=== PATIENT | female | born 1975 | race Caucasian/White ===

== ENCOUNTER 2017-07-29 08:14 | Inpatient (IN) | payer OTHER ==
[2017-07-29 09:10] VITALS: BMI 26.6
--- NOTE | 2017-07-29 11:20 | HP ---
CIWA Score - CIWA Score Nausea/Vomitin Muscle Tremors: 3 Anxiety: 3 Agitation: 3 Paroxysmal Sweats: 3 Orientation: 0-Oriented Tacttile Disturbances: 1-Very Mild Itch/Numbness Auditory Disturbances: 0-None Visual Disturbances: 0-None Headache: 3-Moderate CIWA-Ar Total Score: 19 Admission [facility] Chief Complaint: alcohol withdrawal sx Allergies/Adverse Reactions: Allergies Allergy/AdvReac Type Severity Reaction Status Date / Time No Known Allergies Allergy Verified 07/29/17 09:44 History of Present Illness: 42 yo f with h/o chronic alcoholism [facility] sx reports PMHx depression, anxiyt, insomnia , thirsty on paxil Reports increased heavy drinking daily over past month prompting starting paxil and coming for detox and wants rehab after. started using pills, butnot every day. no h/o seizures or dts, no SI, derpessed and anxious. Exam Limitations: No Limitations - Ebola screening Have you traveled outside of the country in the last 21 days: Yes Have you had contact with anyone from an Ebola affected area: No Have you been sick,other than usual withdrawal symptoms: No Do you have a fever: No - Review of Systems Constitutional: Chills, Diaphoresis, Night Sweats, Changes in sleep, Weakness, Weight Stable EENT: reports: No Symptoms Reported Respiratory: reports: SOB with Exertion Cardiac: reports: No Symptoms Reported GI: reports: Diarrhea, Nausea, Poor Appetite, Poor Fluid Intake, Indigestion, Abdominal cramping : reports: No Symptoms Reported Integumentary: reports: Flushing, Sweating Neuro: reports: Headache, Numbness, Paresthesia, Tingling, Tremors Endocrine: reports: Flushing, Increased Thirst Hematology: reports: No Symptoms Reported Psychiatric: reports: Judgement Intact, Mood/Affect Appropiate, Orientated x3, Anxious, Depressed Other Systems: Reviewed and Negative Patient History - Patient Medical History Hx Anemia: No Hx Asthma: No Hx Chronic Obstructive Pulmonary Disease (COPD): No Hx Cancer: No Hx Cardiac Disorders: No Hx Congestive Heart Failure: No Hx Hypertension: No Hx Hypercholesterolemia: No Hx Pacemaker: No HX Cerebrovascular Accident: No Hx Seizures: No Hx Dementia: No Hx Diabetes: No Hx Gastrointestinal Disorders: No Hx Liver Disease: No Hx Genitourinary Disorders: No Hx Sexually Transmitted Disorders: No Hx Renal Disease (ESRD): No Hx Thyroid Disease: No Hx Human Immunodeficiency Virus (HIV): No Hx Hepatitis C: No Hx Depression: Yes (started on paxil 20mg ) Hx Suicide Attempt: No Hx Bipolar Disorder: No Hx Schizophrenia: No - Patient Surgical History Past Surgical History: Yes Hx Neurologic Surgery: Yes (SX FOR DEGENERATIVE DISC DISEASE IN 2009) Hx Abdominal Surgery: Yes (UMBILICAL HERNIA REPAIR IN 2016) Anesthesia Reaction: No - PPD History Previous Implant?: Yes Documented Results: Negative w/o proof Implanted On Prior [facility] Admission?: No PPD to be Administered?: Yes - Reproductive History Last Menstrual Period: 07/02/17 Patient : No - Smoking Cessation Smoking history: Former smoker Have you smoked in the past 12 months: Yes Aproximately how many cigarettes per day: 15 If you are a former smoker, when did you quit?: 1 MONTH AGO Hx Chewing Tobacco Use: No Initiated information on smoking cessation: Yes 'Breaking Loose' booklet given: 07/29/17 - Substance & Tx. History Hx Alcohol Use: Yes Hx Substance Use: Yes Substance Use Type: Alcohol, Prescribed, Tranquilizers Hx Substance Use Treatment: Yes ([facility]') - Substances Abused Alcohol Route: Oral Frequency: Daily Amount used: FIFTH OF WHISKEY Age of first use: 16 Date of Last Use: 07/28/17 Ectasy Route: Oral Frequency: 1-3 times last 30 days Amount used: 1 PILL Age of first use: 18 Date of Last Use: 07/27/17 Family Disease History - Family Disease History Family Disease History: Respiratory: Mother Admission Physical Exam [facility] - Vital Signs Vital Signs: Vital Signs - 24 hr 07/29/17 09:06 Temperature 98.3 F Pulse Rate 101 H Respiratory 18 Rate Blood Pressure 161/99 - Physical General Appearance: Yes: Nourished, Appropriately Dressed, Disheveled, Mild Distress, Tremorous, Irritable, Sweating, Anxious HEENTM: Yes: Within Normal Limits, EOMI, Hearing grossly Normal, Normal ENT Inspection, Normocephalic, Normal Voice, LOLI, Pharynx Normal Respiratory: Yes: Within Normal Limits, Chest Non-Tender, Lungs Clear, Normal Breath Sounds, No Respiratory Distress, No Accessory Muscle Use Neck: Yes: Within Normal Limits, No masses,lesions,Nodules, Supple, Trachea in good position Breast: Yes: Breast Exam Deferred Cardiology: Yes: Within Normal Limits, Regular Rhythm, Regular Rate, S1, S2 Abdominal: Yes: Within Normal Limits, Normal Bowel Sounds, Flat, Soft, Increased Bowel Sounds Genitourinary: Yes: Within Normal Limits Back: Yes: Within Normal Limits, Normal Inspection Musculoskeletal: Yes: Within Normal Limits, full range of Motion, Gait Steady, Pelvis Stable Extremities: Yes: Normal Capillary Refill, Normal Range of Motion, Non-Tender, Tremors Neurological: Yes: hand meat salter II-XII NML intact, Fully Oriented, Alert, Motor Strength 5/5, Normal Response, Depressed Affect Integumentary: Yes: Normal Color, Dry, Warm, Diaphoresis Lymphatic: Yes: Within Normal Limits - Addiitonal Findings: withdrawal sx - Diagnostic (1) Alcohol dependence with uncomplicated withdrawal Current Visit: Yes Status: Acute (2) Depression Current Visit: Yes Status: Acute (3) Anxiety Current Visit: Yes Status: Acute (4) Insomnia Current Visit: Yes Status: Acute (5) Dehydration Current Visit: Yes Status: Acute (6) Nicotine dependence Current Visit: Yes Status: Acute Cleared for Admission [facility] - Detox or Rehab [facility] Level of Care: Medically Managed Detox Regimen/Protocol: Librium [facility] Breath Alcohol Content Breath Alcohol Content: 0 Urine Pregancy Test - Result Urine Test Results: Negative- NO Line Present Urine Drug Screen - Results Urine Drug Screen Results: AMP-Amphetamines, MDMA-Ecstasy
[2017-07-29] MEDS ORDERED: MENTHOL/PHENOL 1 EACH UD MM PRN (11:25)
[2017-07-29] MEDS ORDERED: MAGNESIUM HYDROX 2400MG/30ML ORAL SUSPENSION 30 ML CUP PO PRN (11:25)
[2017-07-29] MEDS ORDERED: LOPERAMIDE HCL 2 MG CAPSULE PO PRN (11:25)
[2017-07-29] MEDS ORDERED: guaiFENesin/D-METHORPHAN HB 10 ML UNIT-DOSE CUPS PO PRN (11:25)
[2017-07-29] MEDS ORDERED: MAG HYDROX/AL HYDROX/SIMETH 30 ML UNIT-DOSE CUP PO PRN (11:25)
[2017-07-29] MEDS ORDERED: MAGNESIUM CITRATE 300 ML BOTTLE PO PRN (11:25)
[2017-07-29] MEDS ORDERED: P-EPHED 60MG/TRIPROLIDI 2.5MG TABLET PO PRN (11:25)
[2017-07-29] MEDS ORDERED: chlordiazePOXIDE HCL 25 MG CAPSULE PO ONE (12:39)
--- NOTE | 2017-07-29 15:22 | CONSULT ---
[facility] Psychiatric Consult - Data Date of interview: 07/29/17 Admission source: [facility] Identifying data: This is 42 years old female with no psychiatric hospitalization history intoxicated with;. Alcohol, Nicotine, Extasy, Amphetamins Substance Abuse History: - Smoking Cessation. Smoking history: Former smoker. Have you smoked in the past 12 months: Yes. Aproximately how many cigarettes per day: 15. If you are a former smoker, when did you quit?: 1 MONTH AGO. Hx Chewing Tobacco Use: No. Initiated information on smoking cessation: Yes. ' Breaking Loose' booklet given: 07/29/17. - Substance & Tx. History. Hx Alcohol Use: Yes. Hx Substance Use: Yes. Substance Use Type: Alcohol, Prescribed, Tranquilizers. Hx Substance Use Treatment: Yes ([facility] - Substances Abused. Alcohol. Route: Oral. Frequency: Daily. Amount used: FIFTH OF WHISKEY. Age of first use: 16. Date of Last Use: 07/28/17. Ectasy. Route: Oral. Frequency: 1-3 times last 30 days. Amount used: 1 PILL. Age of first use: 18. Date of Last Use: 07/27/17 Medical History: Denies significant medical problem Psychiatric History: Patoemnt reports anxiety and deprerssion,. denies suicidal history, reports taking prior to admission: Paxil 20mg po qd Physical/Sexual Abuse/Trauma History: Denies Additional Comment: Paxil 20mg po qd Mental Status Exam - Mental Status Exam Alert and Oriented to: Person Cognitive Function: Fair Patient Appearance: Well Groomed Mood: Anxious Affect: Mood Congruent Patient Behavior: Cooperative Speech Pattern: Appropriate Voice Loudness: Normal Thought Process: Goal Oriented Thought Disorder: Being Controlled Hallucinations: Denies Suicidal Ideation: Denies Homicidal Ideation: Denies Insight/Judgement: Fair Sleep: Difficulty falling asleep Appetite: Weight gain Muscle strength/Tone: Mild Hypotonicity Gait/Station: Normal Additional Comments: Paxil 20mg po qd Psychiatric Findings - Problem List ([place] 1, 2,3) (1) Anxiety Current Visit: Yes Status: Acute (2) Depression Current Visit: Yes Status: Acute (3) Ecstasy abuse Current Visit: Yes Status: Acute (4) Amphetamine abuse Current Visit: Yes Status: Acute (5) Drug-induced mood disorder Current Visit: Yes Status: Acute (6) Alcohol dependence with uncomplicated withdrawal Current Visit: Yes Status: Acute (7) Nicotine dependence Current Visit: Yes Status: Acute - Initial Treatment Plan Initial Treatment Plan: Paxil 20mg po qd. Ambien 10mg po prn qhs for insomnia
[2017-07-29 15:48] LABS: HEMATOCRIT 36.4 % (32.4-45.2); HEMOGLOBIN 12.3 GM/dL (10.7-15.3); MCH 33.8 pg (25.7-33.7); MCHC 33.7 g/dl (32.0-36.0); MEAN CELL VOLUME 100.1 fl (80-96); MEAN PLT VOLUME 6.7 fl (7.5-11.1); PLATELET COUNT 368 K/MM3 (134-434); RBC 3.64 M/mm3 (3.60-5.2); RDW 13.9 % (11.6-15.6); WHITE BLOOD COUNT 6.6 K/mm3 (4.0-10.0)
[2017-07-29 16:04] LABS: CHLORIDE 100 mmol/L (98-107); SODIUM 138 mmol/L (136-145)
[2017-07-29 16:11] LABS: ALBUMIN 4.1 g/dl (3.4-5.0); ALK PHOS 41 U/L (45-117); ANION GAP 12 (8-16); BILIRUBIN,TOTAL 0.6 mg/dL (0.2-1.0); BLOOD UREA NITROGEN 6 mg/dL (7-18); CALCIUM 8.8 mg/dL (8.5-10.1); CO2 26 mmol/L (21-32); CREATININE 0.5 mg/dL (0.55-1.02); GLUCOSE,RANDOM 72 mg/dL (74-106); SGOT/AST 21 U/L (15-37); SGPT/ALT 24 U/L (12-78); TOT PROT 7.9 g/dl (6.4-8.2)
[2017-07-29] MEDS: chlordiazePOXIDE HCL 25 MG CAPSULE PO SCH ×2 (17:03→22:08)
[2017-07-29] MEDS: PARoxetine HCL 20 MG TABLET (FP) PO SCH (17:03)
[2017-07-29] MEDS: chlordiazePOXIDE HCL 25 MG CAPSULE PO PRN (19:02)
[2017-07-29] MEDS: hydrOXYzine PAMOATE 50 MG CAPSULE (FP) PO PRN (19:02)
[2017-07-29] MEDS: THIAMINE HCL 100 MG TABLET (FP) PO SCH (22:08)
[2017-07-29] MEDS: ZOLPIDEM TARTRATE 10 MG TABLET (PARK CARE ONLY) PO PRN (22:11)
[2017-07-29 23:31] LABS: URINE APPEARANCE CLEAR; URINE BILIRUBIN NEGATIVE (NEGATIVE); URINE BLOOD NEGATIVE (NEGATIVE); URINE COLOR YELLOW; URINE GLUCOSE (UA) NEGATIVE (NEGATIVE); URINE KETONE 1+ (NEGATIVE); URINE LEUK ESTERASE NEGATIVE (NEGATIVE); URINE NITRITE NEGATIVE (NEGATIVE); URINE PROTEIN NEGATIVE (NEGATIVE); URINE UROBILINOGEN NEGATIVE mg/dL (0.2-1.0)
[2017-07-30] MEDS: chlordiazePOXIDE HCL 25 MG CAPSULE PO PRN ×3 (01:36→12:40)
[2017-07-30] MEDS: hydrOXYzine PAMOATE 50 MG CAPSULE (FP) PO PRN ×4 (03:14→18:35)
[2017-07-30] MEDS: chlordiazePOXIDE HCL 25 MG CAPSULE PO SCH ×4 (05:15→22:21)
[2017-07-30] MEDS: PARoxetine HCL 20 MG TABLET (FP) PO SCH (10:24)
[2017-07-30] MEDS: PRENATAL VITAMINS W/ FOLIC ACID TABLET (FP) PO SCH (10:24)
[2017-07-30] MEDS: IBUPROFEN 400 MG TABLET (FP) PO PRN ×2 (10:27→17:14)
[2017-07-30] MEDS: CYCLOBENZAPRINE HCL 10 MG TABLET (FP) PO PRN ×2 (11:03→17:12)
--- NOTE | 2017-07-30 12:01 | PN ---
S CIWA - CIWA Score Nausea/Vomitin Muscle Tremors: 3 Anxiety: 3 Agitation: 2 Paroxysmal Sweats: 1-Minimal Palms Moist Orientation: 0-Oriented Tacttile Disturbances: 1-Very Mild Itch/Numbness Auditory Disturbances: 1-Very Mild Visual Disturbances: 0-None Headache: 2-Mild CIWA-Ar Total Score: 16 BHS Progress Note (SOAP) Subjective: ALERT,IRRITABLE,ANXIOUS,INTERRUPTED SLEEP,TREMOR Objective: 07/30/17 11:59 Vital Signs Temperature 99.1 F 07/30/17 10:28 Pulse Rate 91 H 07/30/17 10:28 Respiratory Rate 18 07/30/17 10:28 Blood Pressure 117/74 07/30/17 10:28 O2 Sat by Pulse Oximetry (%) 07/30/17 11:59 EKG NSR,NORMAL ECG 07/30/17 12:00 Laboratory Last Values WBC 6.6 K/mm3 (4.0-10.0) 07/29/17 11:30 RBC 3.64 M/mm3 (3.60-5.2) 07/29/17 11:30 Hgb 12.3 GM/dL (10.7-15.3) 07/29/17 11:30 Hct 36.4 % (32.4-45.2) 07/29/17 11:30 MCV 100.1 fl (80-96) H 07/29/17 11:30 MCH 33.8 pg (25.7-33.7) H 07/29/17 11:30 MCHC 33.7 g/dl (32.0-36.0) 07/29/17 11:30 RDW 13.9 % (11.6-15.6) 07/29/17 11:30 Plt Count 368 K/MM3 (134-434) 07/29/17 11:30 MPV 6.7 fl (7.5-11.1) L 07/29/17 11:30 Sodium 138 mmol/L (136-145) 07/29/17 11:30 Potassium 4.0 mmol/L (3.5-5.1) 07/29/17 11:30 Chloride 100 mmol/L (98-107) 07/29/17 11:30 Carbon Dioxide 26 mmol/L (21-32) 07/29/17 11:30 Anion Gap 12 (8-16) 07/29/17 11:30 BUN 6 mg/dL (7-18) L 07/29/17 11:30 Creatinine 0.5 mg/dL (0.55-1.02) L 07/29/17 11:30 Creat Clearance w eGFR > 60 (>60) 07/29/17 11:30 Random Glucose 72 mg/dL (74-106) L 07/29/17 11:30 Calcium 8.8 mg/dL (8.5-10.1) 07/29/17 11:30 Total Bilirubin 0.6 mg/dL (0.2-1.0) 07/29/17 11:30 AST 21 U/L (15-37) 07/29/17 11:30 ALT 24 U/L (12-78) 07/29/17 11:30 Alkaline Phosphatase 41 U/L (45-117) L 07/29/17 11:30 Total Protein 7.9 g/dl (6.4-8.2) 07/29/17 11:30 Albumin 4.1 g/dl (3.4-5.0) 07/29/17 11:30 Urine Color Yellow 07/29/17 21:00 Urine Appearance Clear 07/29/17 21:00 Urine pH 6.0 (5.0-8.0) 07/29/17 21:00 Ur Specific [place] 1.017 (1.001-1.035) 07/29/17 21:00 Urine Protein Negative (NEGATIVE) 07/29/17 21:00 Urine Glucose (UA) Negative (NEGATIVE) 07/29/17 21:00 Urine Ketones 1+ (NEGATIVE) H 07/29/17 21:00 Urine Blood Negative (NEGATIVE) 07/29/17 21:00 Urine Nitrite Negative (NEGATIVE) 07/29/17 21:00 Urine Bilirubin Negative (NEGATIVE) 07/29/17 21:00 Urine Urobilinogen Negative mg/dL (0.2-1.0) 07/29/17 21:00 Ur Leukocyte Esterase Negative (NEGATIVE) 07/29/17 21:00 Assessment: 07/30/17 12:00 WITHDRAWAL SYMPTOM Plan: CONTINUE DETOX
[2017-07-30] MEDS: ZOLPIDEM TARTRATE 10 MG TABLET (PARK CARE ONLY) PO PRN (22:21)
[2017-07-30] MEDS: THIAMINE HCL 100 MG TABLET (FP) PO SCH (22:21)
[2017-07-31] MEDS: hydrOXYzine PAMOATE 50 MG CAPSULE (FP) PO PRN ×4 (03:48→17:53)
[2017-07-31] MEDS: CYCLOBENZAPRINE HCL 10 MG TABLET (FP) PO PRN ×3 (03:49→20:31)
[2017-07-31] MEDS: chlordiazePOXIDE HCL 25 MG CAPSULE PO SCH ×2 (05:20→10:30)
[2017-07-31] MEDS: IBUPROFEN 400 MG TABLET (FP) PO PRN ×2 (05:22→16:39)
[2017-07-31] MEDS: chlordiazePOXIDE HCL 25 MG CAPSULE PO PRN ×3 (06:59→18:56)
[2017-07-31] MEDS: PARoxetine HCL 20 MG TABLET (FP) PO SCH (10:30)
[2017-07-31] MEDS: PRENATAL VITAMINS W/ FOLIC ACID TABLET (FP) PO SCH (10:30)
[2017-07-31] MEDS: cloNIDine HCL 0.1 MG TABLET PO SCH ×2 (10:30→22:17)
--- NOTE | 2017-07-31 11:13 | PN ---
S CIWA - CIWA Score Nausea/Vomitin Muscle Tremors: 3 Anxiety: 3 Agitation: 2 Paroxysmal Sweats: 1-Minimal Palms Moist Orientation: 0-Oriented Tacttile Disturbances: 1-Very Mild Itch/Numbness Auditory Disturbances: 1-Very Mild Visual Disturbances: 0-None Headache: 2-Mild CIWA-Ar Total Score: 16 BHS Progress Note (SOAP) Subjective: ALERT,IRRITABLE,ANXIOUS,INTERRUPTED SLEEP,TREMOR,PAIN IN THE BODY AND BACK Objective: 07/31/17 11:11 Vital Signs Temperature 97.9 F 07/31/17 10:23 Pulse Rate 87 07/31/17 10:23 Respiratory Rate 18 07/31/17 10:23 Blood Pressure 122/59 07/31/17 10:23 O2 Sat by Pulse Oximetry (%) Laboratory Last Values WBC 6.6 K/mm3 (4.0-10.0) 07/29/17 11:30 RBC 3.64 M/mm3 (3.60-5.2) 07/29/17 11:30 Hgb 12.3 GM/dL (10.7-15.3) 07/29/17 11:30 Hct 36.4 % (32.4-45.2) 07/29/17 11:30 MCV 100.1 fl (80-96) H 07/29/17 11:30 MCH 33.8 pg (25.7-33.7) H 07/29/17 11:30 MCHC 33.7 g/dl (32.0-36.0) 07/29/17 11:30 RDW 13.9 % (11.6-15.6) 07/29/17 11:30 Plt Count 368 K/MM3 (134-434) 07/29/17 11:30 MPV 6.7 fl (7.5-11.1) L 07/29/17 11:30 Sodium 138 mmol/L (136-145) 07/29/17 11:30 Potassium 4.0 mmol/L (3.5-5.1) 07/29/17 11:30 Chloride 100 mmol/L (98-107) 07/29/17 11:30 Carbon Dioxide 26 mmol/L (21-32) 07/29/17 11:30 Anion Gap 12 (8-16) 07/29/17 11:30 BUN 6 mg/dL (7-18) L 07/29/17 11:30 Creatinine 0.5 mg/dL (0.55-1.02) L 07/29/17 11:30 Creat Clearance w eGFR > 60 (>60) 07/29/17 11:30 Random Glucose 72 mg/dL (74-106) L 07/29/17 11:30 Calcium 8.8 mg/dL (8.5-10.1) 07/29/17 11:30 Total Bilirubin 0.6 mg/dL (0.2-1.0) 07/29/17 11:30 AST 21 U/L (15-37) 07/29/17 11:30 ALT 24 U/L (12-78) 07/29/17 11:30 Alkaline Phosphatase 41 U/L (45-117) L 07/29/17 11:30 Total Protein 7.9 g/dl (6.4-8.2) 07/29/17 11: Albumin 4.1 g/dl (3.4-5.0) 07/29/17:30 Urine Color Yellow 07/29/17 21:00 Urine Appearance Clear 07/29/17 21:00 Urine pH 6.0 (5.0-8.0) 07/29/17 21:00 Ur Specific [place] 1.017 (1.001-1.035) 07/29/17 21:00 Urine Protein Negative (NEGATIVE) 07/29/17 21:00 Urine Glucose (UA) Negative (NEGATIVE) 07/29/17 21:00 Urine Ketones 1+ (NEGATIVE) H 07/29/17 21:00 Urine Blood Negative (NEGATIVE) 07/29/17 21:00 Urine Nitrite Negative (NEGATIVE) 07/29/17 21:00 Urine Bilirubin Negative (NEGATIVE) 07/29/17 21:00 Urine Urobilinogen Negative mg/dL (0.2-1.0) 07/29/17 21:00 Ur Leukocyte Esterase Negative (NEGATIVE) 07/29/17 21:00 RPR Titer Nonreactive (NONREACTIVE) 07/29/17 11:30 Assessment: 07/31/17 11:12 WITHDRAWAL SYMPTOM Plan: CONTINUE DETOX
[2017-07-31] MEDS: chlordiazePOXIDE 5 MG CAPSULE PO SCH ×2 (16:38→22:17)
--- NOTE | 2017-07-31 17:12 | EKG ---
Test Reason : Blood Pressure : / mmHG Vent. Rate : 089 BPM Atrial Rate : 089 BPM P-R Int : 148 ms QRS Dur : 088 ms QT Int : 382 ms P-R-T Axes : 077 080 067 degrees QTc Int : 464 ms NORMAL SINUS RHYTHM NORMAL ECG NO PREVIOUS ECGS AVAILABLE Confirmed by CAMRYN GUDINO MD ([id number]) on 07/31/2017 5:12:34 PM Referred By: Confirmed By:CAMRYN GUDINO MD
[2017-07-31] MEDS: ZOLPIDEM TARTRATE 10 MG TABLET (PARK CARE ONLY) PO PRN (22:17)
[2017-07-31] MEDS: THIAMINE HCL 100 MG TABLET (FP) PO SCH (22:17)
[2017-08-01] MEDS: hydrOXYzine PAMOATE 50 MG CAPSULE (FP) PO PRN ×5 (03:29→22:10)
[2017-08-01] MEDS: CYCLOBENZAPRINE HCL 10 MG TABLET (FP) PO PRN ×3 (05:59→22:10)
[2017-08-01] MEDS: chlordiazePOXIDE 5 MG CAPSULE PO SCH ×2 (05:59→10:23)
[2017-08-01] MEDS: PARoxetine HCL 20 MG TABLET (FP) PO SCH (10:22)
[2017-08-01] MEDS: cloNIDine HCL 0.1 MG TABLET PO SCH ×2 (10:22→22:10)
[2017-08-01] MEDS: PRENATAL VITAMINS W/ FOLIC ACID TABLET (FP) PO SCH (10:23)
--- NOTE | 2017-08-01 13:14 | PN ---
BHS Progress Note (SOAP) Subjective: tremor sweat difficulty to fall a sleep Objective: 08/01/17 13:10 Vital Signs Temperature 97.7 F 08/01/17 10:00 Pulse Rate 89 08/01/17 10:00 Respiratory Rate 18 08/01/17 10:00 Blood Pressure 112/69 08/01/17 10:00 O2 Sat by Pulse Oximetry (%) Laboratory Last Values WBC 6.6 K/mm3 (4.0-10.0) 07/29/17 11:30 RBC 3.64 M/mm3 (3.60-5.2) 07/29/17 11:30 Hgb 12.3 GM/dL (10.7-15.3) 07/29/17 11:30 Hct 36.4 % (32.4-45.2) 07/29/17 11:30 MCV 100.1 fl (80-96) H 07/29/17 11:30 MCH 33.8 pg (25.7-33.7) H 07/29/17 11:30 MCHC 33.7 g/dl (32.0-36.0) 07/29/17 11:30 RDW 13.9 % (11.6-15.6) 07/29/17 11:30 Plt Count 368 K/MM3 (134-434) 07/29/17 11:30 MPV 6.7 fl (7.5-11.1) L 07/29/17 11:30 Sodium 138 mmol/L (136-145) 07/29/17 11:30 Potassium 4.0 mmol/L (3.5-5.1) 07/29/17 11:30 Chloride 100 mmol/L (98-107) 07/29/17 11:30 Carbon Dioxide 26 mmol/L (21-32) 07/29/17 11:30 Anion Gap 12 (8-16) 07/29/17 11:30 BUN 6 mg/dL (7-18) L 07/29/17 11:30 Creatinine 0.5 mg/dL (0.55-1.02) L 07/29/17 11:30 Creat Clearance w eGFR > 60 (>60) 07/29/17 11:30 Random Glucose 72 mg/dL (74-106) L 07/29/17 11:30 Calcium 8.8 mg/dL (8.5-10.1) 07/29/17 11:30 Total Bilirubin 0.6 mg/dL (0.2-1.0) 07/29/17 11:30 AST 21 U/L (15-37) 07/29/17 11:30 ALT 24 U/L (12-78) 07/29/17 11:30 Alkaline Phosphatase 41 U/L (45-117) L 07/29/17 11:30 Total Protein 7.9 g/dl (6.4-8.2) 07/29/17 11:30 Albumin 4.1 g/dl (3.4-5.0) 07/29/17 11:30 Urine Color Yellow 07/29/17 21:00 Urine Appearance Clear 07/29/17 21:00 Urine pH 6.0 (5.0-8.0) 07/29/17 21:00 Ur Specific [place] 1.017 (1.001-1.035) 07/29/17 21:00 Urine Protein Negative (NEGATIVE) 07/29/17 21:00 Urine Glucose (UA) Negative (NEGATIVE) 07/29/17 21:00 Urine Ketones 1+ (NEGATIVE) H 07/29/17 21:00 Urine Blood Negative (NEGATIVE) 07/29/17 21:00 Urine Nitrite Negative (NEGATIVE) 07/29/17 21:00 Urine Bilirubin Negative (NEGATIVE) 07/29/17 21:00 Urine Urobilinogen Negative mg/dL (0.2-1.0) 07/29/17 21:00 Ur Leukocyte Esterase Negative (NEGATIVE) 07/29/17 21:00 RPR Titer Nonreactive (NONREACTIVE) 07/29/17 11:30 lab noted Assessment: 08/01/17 13:11 patient determines to remain sober aftercare arrangement uncertain case discussed with onsite counselor that the patient will have aftercare arrangement by 08/03/17 Plan: continue detox emotional support and strategies for recovery
[2017-08-01] MEDS: IBUPROFEN 400 MG TABLET (FP) PO PRN (14:31)
[2017-08-01] MEDS: chlordiazePOXIDE HCL 10 MG CAPSULE PO SCH ×2 (16:48→22:10)
[2017-08-01] MEDS: ACETAMINOPHEN 325 MG TABLET (FP) PO PRN (17:16)
[2017-08-01] MEDS: THIAMINE HCL 100 MG TABLET (FP) PO SCH (22:10)
[2017-08-02] MEDS: hydrOXYzine PAMOATE 50 MG CAPSULE (FP) PO PRN ×5 (02:21→22:15)
[2017-08-02] MEDS: chlordiazePOXIDE HCL 10 MG CAPSULE PO SCH ×2 (05:19→10:31)
[2017-08-02] MEDS: CYCLOBENZAPRINE HCL 10 MG TABLET (FP) PO PRN ×3 (05:19→22:15)
--- NOTE | 2017-08-02 10:01 | PN ---
BHS Progress Note (SOAP) Subjective: ALERT,IRRITABLE,ANXIOUS,INTERRUPTED SLEEP,PAIN IN THE BODY,AGITATED,PAIN IN THE LOWER BACK Objective: 08/02/17 09:59 Vital Signs Temperature 97.5 F L 08/02/17 06:00 Pulse Rate 79 08/02/17 06:00 Respiratory Rate 18 08/02/17 06:00 Blood Pressure 102/56 08/02/17 06:00 O2 Sat by Pulse Oximetry (%) WITHDRAWAL SYMPTOM Assessment: 08/02/17 10:00 WITHDRAWAL SYMPTOM Plan: CONTINUE DETOX,DISCHARGE IN AM
[2017-08-02] MEDS: PRENATAL VITAMINS W/ FOLIC ACID TABLET (FP) PO SCH (10:30)
[2017-08-02] MEDS: PARoxetine HCL 20 MG TABLET (FP) PO SCH (10:30)
[2017-08-02] MEDS: cloNIDine HCL 0.1 MG TABLET PO SCH ×2 (10:30→22:15)
[2017-08-02] MEDS: IBUPROFEN 400 MG TABLET (FP) PO PRN ×2 (13:56→23:28)
[2017-08-02] MEDS: ACETAMINOPHEN 325 MG TABLET (FP) PO PRN (18:44)
[2017-08-02] MEDS: THIAMINE HCL 100 MG TABLET (FP) PO SCH (22:15)
[2017-08-03] MEDS: hydrOXYzine PAMOATE 50 MG CAPSULE (FP) PO PRN ×3 (03:25→11:35)
--- NOTE | 2017-08-03 10:22 | DS ---
[facility] Detox Discharge Summary Admission Date: 07/29/17 Discharge Date: 08/03/17 - History Present History: Alcohol Dependence, Sedative Dependence - Physical Exam Results Vital Signs: Vital Signs Temperature 98.4 F 08/03/17 10:14 Pulse Rate 86 08/03/17 10:14 Respiratory Rate 20 08/03/17 10:14 Blood Pressure 102/70 08/03/17 10:14 O2 Sat by Pulse Oximetry (%) - Treatment Hospital Course: Detox Protocol Followed, Detoxed Safely, Responded well, Discharged Condition Good - Medication Discharge Medications: Ambulatory Orders Paroxetine HCl [Paxil -] 20 mg PO DAILY #30 tablet 07/29/17 - Diagnosis (1) Alcohol dependence with uncomplicated withdrawal Current Visit: Yes Status: Acute (2) Amphetamine abuse Current Visit: Yes Status: Acute (3) Drug-induced mood disorder Current Visit: Yes Status: Acute (4) Ecstasy abuse Current Visit: Yes Status: Acute (5) Insomnia Current Visit: Yes Status: Acute (6) Nicotine dependence Current Visit: Yes Status: Acute - AMA Did Patient Leave Against Medical Advice: No
[2017-08-03] MEDS: PARoxetine HCL 20 MG TABLET (FP) PO SCH (10:43)
[2017-08-03] MEDS: PRENATAL VITAMINS W/ FOLIC ACID TABLET (FP) PO SCH (10:43)
[2017-08-03] MEDS: cloNIDine HCL 0.1 MG TABLET PO SCH (10:43)
[2017-08-03] MEDS: CYCLOBENZAPRINE HCL 10 MG TABLET (FP) PO PRN (14:03)
[2017-08-03 14:32] VITALS: BP 104/69; PULSE 84; TEMP 98.1
== END 2017-08-03 14:32 | disposition other institution (70) | DRG 775 ==
LOC: YASAS 08:14 → Y6N 12:01
PROVIDERS: ADMIT Internal Medicine; ATTEND Internal Medicine
PROC: HZ2ZZZZ Detoxification Services for Substance Abuse Treatment (ICD-10-PCS; principal; 2017-07-29)
DX: F10.230 Alcohol dependence with withdrawal, uncomplicated (principal); F15.10 Other stimulant abuse, uncomplicated; F16.10 Hallucinogen abuse, uncomplicated; F17.210 Nicotine dependence, cigarettes, uncomplicated; F19.24 Other psychoactive substance dependence with psychoactive substance-induced mood disorder; F32.9 Major depressive disorder, single episode, unspecified; F41.9 Anxiety disorder, unspecified; G47.00 Insomnia, unspecified
CPT/HCPCS: 36415; 80053; 81003; 85027; 86593; 93005; 93010

== ENCOUNTER 2017-08-03 14:00 | Inpatient (IN) | payer OTHER ==
[2017-08-03] MEDS ORDERED: MAGNESIUM CITRATE 300 ML BOTTLE PO PRN (16:03)
[2017-08-03] MEDS ORDERED: MENTHOL/PHENOL 1 EACH UD MM PRN (16:03)
[2017-08-03] MEDS ORDERED: LOPERAMIDE HCL 2 MG CAPSULE PO PRN (16:03)
[2017-08-03] MEDS ORDERED: NICOTINE POLACRILEX 4 MG GUM BUC PRN (16:03)
[2017-08-03] MEDS ORDERED: ACETAMINOPHEN 325 MG TABLET (FP) PO PRN (16:03)
[2017-08-03] MEDS ORDERED: MAG HYDROX/AL HYDROX/SIMETH 30 ML UNIT-DOSE CUP PO PRN (16:03)
[2017-08-03] MEDS ORDERED: MAGNESIUM HYDROX 2400MG/30ML ORAL SUSPENSION 30 ML CUP PO PRN (16:03)
[2017-08-03] MEDS ORDERED: guaiFENesin/D-METHORPHAN HB 10 ML UNIT-DOSE CUPS PO PRN (16:03)
[2017-08-03] MEDS ORDERED: P-EPHED 60MG/TRIPROLIDI 2.5MG TABLET PO PRN (16:03)
--- NOTE | 2017-08-03 16:20 | HP ---
[facility] Rehab Assess/Revision - Admission History Admitted to Rehab from: [facility] Date of Admission to Rehab: 08/03/17 - Vital signs Vital Signs: Vital Signs Period Temp Pulse Resp BP Sys/[place]ra Pulse Ox Last 24 Hr 98.7 F 84 18 111/75 - Findings Detox History & Physical reviewed: Yes Concur with findings: Yes Comments/Additional Findings: transferred from detox to rehab admission as per protocol Inpatient Rehab Admission - Initial Determination Are CD services needed?: Yes Free of communicable disease: Yes Not in need of hospitalization: Yes - Rehab Admission Criteria Previous failed treatment: Yes Poor recovery environment: Yes Comorbidities: Yes Lacks judgement: No Patient is meeting Inpatient Rehab admission criteria:: Yes
[2017-08-03] MEDS: hydrOXYzine PAMOATE 50 MG CAPSULE (FP) PO PRN ×2 (18:15→22:39)
[2017-08-03] MEDS: THIAMINE HCL 100 MG TABLET (FP) PO SCH (21:55)
[2017-08-03] MEDS: METHOCARBAMOL 500 MG TABLET PO PRN (21:55)
[2017-08-03] MEDS: cloNIDine HCL 0.1 MG TABLET PO PRN (21:55)
[2017-08-04] MEDS: hydrOXYzine PAMOATE 50 MG CAPSULE (FP) PO PRN ×5 (02:39→18:55)
[2017-08-04] MEDS: METHOCARBAMOL 500 MG TABLET PO PRN ×3 (06:35→21:49)
[2017-08-04] MEDS ORDERED: NICOTINE 21 MG/24 HOURS TOPICAL PATCH TD SCH (10:00)
[2017-08-04] MEDS: PRENATAL VITAMINS W/ FOLIC ACID TABLET (FP) PO SCH (10:08)
[2017-08-04] MEDS: cloNIDine HCL 0.1 MG TABLET PO PRN ×2 (10:14→21:49)
--- NOTE | 2017-08-04 11:02 | HP ---
Psychiatrist Admission - Data Date of interview: 08/04/17 Admission source: [address] [place] [address] Identifying data: Arabella is the first admission to [address] [place] [address] rehabilitation for this 42 yeqars old female single mother of 10 and 2 years old daughters (kids with family),resides with boyfriend,supported by Child support money. Medical History: H/O Umbilical hernia repair,Disk disease with neurosurgery, Carpal luke syndrome (needs surgery). Psychiatric History: patient reports long history of depressed mood,anxiety, sleeping difficulties.She didnt addressed her issues until recently,when she was placed on Paxil 20 mg po daily by her PCP. Physical/Sexual Abuse/Trauma History: denies Vital Signs: Vital Signs - 24 hr 08/03/17 08/03/17 08/04/17 15:06 20:35 08:09 Temperature 98.7 F 98.2 F Pulse Rate 84 92 H 79 Respiratory 18 20 Rate Blood Pressure 111/75 114/73 102/67 Allergies/Adverse Reactions: Allergies Allergy/AdvReac Type Severity Reaction Status Date / Time No Known Allergies Allergy Verified 07/29/17 09:44 Date of last physical exam: 07/29/17 Concur with the findings of this exam: Yes - Substance Abuse/Tx History Hx Alcohol Use: Yes (drinking since 16 yo,on and of,binging(hard liquors)) Hx Substance Use: Yes (MDMA(Ecstasy)since 17 yo ) Substance Use Type: Alcohol Hx Substance Use Treatment: Yes Mental Status Exam - Mental Status Exam Alert and Oriented to: Time, Place, Person Cognitive Function: Grossly Intact Patient Appearance: Well Groomed Mood: Nervous, Anxious, Apprehensive Affect: Mood Congruent, Labile Patient Behavior: Cooperative Speech Pattern: Clear Voice Loudness: Normal Thought Process: Goal Oriented Thought Disorder: Not Present Hallucinations: Denies Suicidal Ideation: Denies Homicidal Ideation: Denies Insight/Judgement: Fair Sleep: Fair Appetite: Good Muscle strength/Tone: Normal Gait/Station: Normal Psychiatric Findings - Problem List ([place] 1, 2,3) (1) Alcohol dependence Current Visit: Yes Status: Chronic (2) Nicotine dependence Current Visit: Yes Status: Chronic (3) Ecstasy abuse Current Visit: Yes Status: Chronic (4) Amphetamine abuse Current Visit: Yes Status: Chronic (5) Drug-induced mood disorder Current Visit: Yes Status: Chronic - Initial Treatment Plan Initial Treatment Plan: Paxil 20 mg po daily will be adjusted to 30 mg po daily, start Seroquel 50 mg po hs. Will monitor progress.
[2017-08-04] MEDS: PARoxetine HCL 10 MG TABLET (FP) PO SCH (12:00)
[2017-08-04] MEDS: THIAMINE HCL 100 MG TABLET (FP) PO SCH (21:49)
[2017-08-04] MEDS: QUEtiapine FUMARATE 50 MG TABLET PO SCH (21:51)
[2017-08-05] MEDS: hydrOXYzine PAMOATE 50 MG CAPSULE (FP) PO PRN ×5 (01:25→18:39)
[2017-08-05] MEDS: METHOCARBAMOL 500 MG TABLET PO PRN (06:10)
[2017-08-05] MEDS ORDERED: PT OWN MED DRAWER 7, Y5N ONE (08:58)
[2017-08-05] MEDS ORDERED: diphenhydrAMINE HCL 50 MG CAPSULE PO PRN (10:14)
[2017-08-05] MEDS: PARoxetine HCL 10 MG TABLET (FP) PO SCH (10:21)
[2017-08-05] MEDS: PRENATAL VITAMINS W/ FOLIC ACID TABLET (FP) PO SCH (10:21)
[2017-08-05] MEDS ORDERED: METHOCARBAMOL 500 MG TABLET PO SCH (12:00)
[2017-08-05] MEDS: METHOCARBAMOL 500 MG TABLET PO SCH ×2 (13:01→21:35)
[2017-08-05] MEDS: cloNIDine HCL 0.1 MG TABLET PO PRN (21:35)
[2017-08-05] MEDS: QUEtiapine FUMARATE 50 MG TABLET PO SCH (21:35)
[2017-08-05] MEDS: THIAMINE HCL 100 MG TABLET (FP) PO SCH (21:35)
[2017-08-06] MEDS: hydrOXYzine PAMOATE 50 MG CAPSULE (FP) PO PRN ×6 (02:54→23:46)
[2017-08-06] MEDS: METHOCARBAMOL 500 MG TABLET PO SCH ×3 (06:13→21:39)
[2017-08-06] MEDS ORDERED: PT OWN MED DRAWER 7, Y5N ONE (08:42)
[2017-08-06] MEDS: PRENATAL VITAMINS W/ FOLIC ACID TABLET (FP) PO SCH (10:30)
[2017-08-06] MEDS: cloNIDine HCL 0.1 MG TABLET PO PRN ×2 (10:31→19:16)
[2017-08-06] MEDS: PARoxetine HCL 10 MG TABLET (FP) PO SCH (10:44)
[2017-08-06] MEDS: THIAMINE HCL 100 MG TABLET (FP) PO SCH (21:39)
[2017-08-06] MEDS: QUEtiapine FUMARATE 50 MG TABLET PO SCH (21:39)
[2017-08-07] MEDS: hydrOXYzine PAMOATE 50 MG CAPSULE (FP) PO PRN ×4 (05:57→18:44)
[2017-08-07] MEDS: METHOCARBAMOL 500 MG TABLET PO SCH ×3 (05:57→21:31)
[2017-08-07] MEDS: cloNIDine HCL 0.1 MG TABLET PO PRN ×2 (07:09→18:44)
[2017-08-07] MEDS: PARoxetine HCL 10 MG TABLET (FP) PO SCH (10:24)
[2017-08-07] MEDS: PRENATAL VITAMINS W/ FOLIC ACID TABLET (FP) PO SCH (10:24)
[2017-08-07] MEDS: QUEtiapine FUMARATE 50 MG TABLET PO SCH (21:31)
[2017-08-07] MEDS: THIAMINE HCL 100 MG TABLET (FP) PO SCH (21:31)
[2017-08-08] MEDS: hydrOXYzine PAMOATE 50 MG CAPSULE (FP) PO PRN ×5 (04:36→22:32)
[2017-08-08] MEDS: cloNIDine HCL 0.1 MG TABLET PO PRN (06:05)
[2017-08-08] MEDS: METHOCARBAMOL 500 MG TABLET PO SCH ×3 (06:05→21:53)
[2017-08-08] MEDS: PARoxetine HCL 10 MG TABLET (FP) PO SCH (10:10)
[2017-08-08] MEDS: PRENATAL VITAMINS W/ FOLIC ACID TABLET (FP) PO SCH (10:10)
[2017-08-08] MEDS: THIAMINE HCL 100 MG TABLET (FP) PO SCH (21:53)
[2017-08-08] MEDS: QUEtiapine FUMARATE 50 MG TABLET PO SCH (21:53)
[2017-08-09] MEDS: hydrOXYzine PAMOATE 50 MG CAPSULE (FP) PO PRN ×5 (03:35→21:58)
[2017-08-09] MEDS: METHOCARBAMOL 500 MG TABLET PO SCH ×3 (06:18→21:58)
[2017-08-09] MEDS: PARoxetine HCL 10 MG TABLET (FP) PO SCH (10:27)
[2017-08-09] MEDS: PRENATAL VITAMINS W/ FOLIC ACID TABLET (FP) PO SCH (10:28)
[2017-08-09] MEDS ORDERED: QUEtiapine FUMARATE 25 MG TABLET (FP) PO STA (10:55)
[2017-08-09] MEDS: cloNIDine HCL 0.1 MG TABLET PO PRN ×2 (11:10→21:58)
[2017-08-09] MEDS: QUEtiapine FUMARATE 25 MG TABLET (FP) PO SCH ×2 (12:01→21:58)
[2017-08-09] MEDS: THIAMINE HCL 100 MG TABLET (FP) PO SCH (21:58)
[2017-08-10] MEDS: hydrOXYzine PAMOATE 50 MG CAPSULE (FP) PO PRN ×5 (03:34→21:34)
[2017-08-10] MEDS: METHOCARBAMOL 500 MG TABLET PO SCH ×3 (06:21→21:34)
[2017-08-10] MEDS: QUEtiapine FUMARATE 25 MG TABLET (FP) PO SCH ×3 (06:21→21:35)
[2017-08-10] MEDS ORDERED: QUEtiapine FUMARATE 25 MG TABLET (FP) PO SCH (10:00)
[2017-08-10] MEDS: PARoxetine HCL 10 MG TABLET (FP) PO SCH (10:36)
[2017-08-10] MEDS: PRENATAL VITAMINS W/ FOLIC ACID TABLET (FP) PO SCH (10:36)
[2017-08-10] MEDS: cloNIDine HCL 0.1 MG TABLET PO PRN (10:37)
[2017-08-10] MEDS ORDERED: PT OWN MED DRAWER 7, Y5N ONE (14:51)
[2017-08-10] MEDS: THIAMINE HCL 100 MG TABLET (FP) PO SCH (21:34)
[2017-08-11] MEDS: hydrOXYzine PAMOATE 50 MG CAPSULE (FP) PO PRN ×5 (03:30→23:06)
[2017-08-11] MEDS: QUEtiapine FUMARATE 25 MG TABLET (FP) PO SCH ×3 (06:32→22:00)
[2017-08-11] MEDS: METHOCARBAMOL 500 MG TABLET PO SCH ×3 (06:32→22:00)
[2017-08-11] MEDS: cloNIDine HCL 0.1 MG TABLET PO PRN (06:32)
[2017-08-11] MEDS: PRENATAL VITAMINS W/ FOLIC ACID TABLET (FP) PO SCH (10:40)
[2017-08-11] MEDS: PARoxetine HCL 10 MG TABLET (FP) PO SCH (10:41)
[2017-08-11] MEDS: THIAMINE HCL 100 MG TABLET (FP) PO SCH (22:00)
[2017-08-12] MEDS: METHOCARBAMOL 500 MG TABLET PO SCH ×3 (06:28→21:49)
[2017-08-12] MEDS: QUEtiapine FUMARATE 25 MG TABLET (FP) PO SCH ×3 (06:28→21:49)
[2017-08-12] MEDS: hydrOXYzine PAMOATE 50 MG CAPSULE (FP) PO PRN ×4 (06:28→21:49)
[2017-08-12] MEDS: cloNIDine HCL 0.1 MG TABLET PO PRN ×2 (08:54→21:49)
[2017-08-12] MEDS: PARoxetine HCL 10 MG TABLET (FP) PO SCH (10:40)
[2017-08-12] MEDS: PRENATAL VITAMINS W/ FOLIC ACID TABLET (FP) PO SCH (10:40)
[2017-08-12] MEDS ORDERED: PT OWN MED DRAWER 7, Y5N ONE (14:41)
[2017-08-12] MEDS: CLOTRIMAZOLE 1% CREAM 15 GM TUBE TP SCH ×2 (15:17→21:50)
[2017-08-12] MEDS: THIAMINE HCL 100 MG TABLET (FP) PO SCH (21:49)
[2017-08-13] MEDS: hydrOXYzine PAMOATE 50 MG CAPSULE (FP) PO PRN ×5 (03:20→21:08)
[2017-08-13] MEDS: QUEtiapine FUMARATE 25 MG TABLET (FP) PO SCH ×3 (06:15→21:09)
[2017-08-13] MEDS: METHOCARBAMOL 500 MG TABLET PO SCH ×3 (06:15→21:09)
[2017-08-13] MEDS ORDERED: PT OWN MED DRAWER 7, Y5N ONE ×2 (09:10→10:51)
[2017-08-13] MEDS: CLOTRIMAZOLE 1% CREAM 15 GM TUBE TP SCH ×2 (10:43→21:10)
[2017-08-13] MEDS: PRENATAL VITAMINS W/ FOLIC ACID TABLET (FP) PO SCH (10:43)
[2017-08-13] MEDS: PARoxetine HCL 10 MG TABLET (FP) PO SCH (10:43)
[2017-08-13] MEDS: cloNIDine HCL 0.1 MG TABLET PO PRN ×2 (10:45→21:09)
[2017-08-13] MEDS: COLLOIDAL OATMEAL 1 BAR EACH TP PRN (15:48)
[2017-08-13] MEDS: THIAMINE HCL 100 MG TABLET (FP) PO SCH (21:08)
[2017-08-14] MEDS: hydrOXYzine PAMOATE 50 MG CAPSULE (FP) PO PRN ×5 (02:55→19:59)
[2017-08-14] MEDS: METHOCARBAMOL 500 MG TABLET PO SCH ×3 (06:37→21:05)
[2017-08-14] MEDS: QUEtiapine FUMARATE 25 MG TABLET (FP) PO SCH ×3 (06:38→21:05)
[2017-08-14] MEDS ORDERED: PT OWN MED DRAWER 7, Y5N ONE ×5 (08:33→19:54)
[2017-08-14] MEDS: cloNIDine HCL 0.1 MG TABLET PO PRN ×2 (08:55→21:04)
[2017-08-14] MEDS: PRENATAL VITAMINS W/ FOLIC ACID TABLET (FP) PO SCH (09:00)
[2017-08-14] MEDS: PARoxetine HCL 10 MG TABLET (FP) PO SCH (09:00)
[2017-08-14] MEDS: CLOTRIMAZOLE 1% CREAM 15 GM TUBE TP SCH ×2 (10:25→21:05)
[2017-08-14] MEDS: THIAMINE HCL 100 MG TABLET (FP) PO SCH (21:04)
[2017-08-15] MEDS: hydrOXYzine PAMOATE 50 MG CAPSULE (FP) PO PRN ×5 (03:44→20:01)
[2017-08-15] MEDS: QUEtiapine FUMARATE 25 MG TABLET (FP) PO SCH ×3 (06:35→21:46)
[2017-08-15] MEDS: METHOCARBAMOL 500 MG TABLET PO SCH ×3 (06:36→21:46)
[2017-08-15] MEDS: PARoxetine HCL 10 MG TABLET (FP) PO SCH (09:26)
[2017-08-15] MEDS: cloNIDine HCL 0.1 MG TABLET PO PRN ×2 (09:26→21:47)
[2017-08-15] MEDS: PRENATAL VITAMINS W/ FOLIC ACID TABLET (FP) PO SCH (09:26)
[2017-08-15] MEDS: CLOTRIMAZOLE 1% CREAM 15 GM TUBE TP SCH ×2 (09:26→21:45)
[2017-08-15] MEDS ORDERED: PT OWN MED DRAWER 7, Y5N ONE ×3 (10:31→21:49)
[2017-08-15] MEDS: IBUPROFEN 400 MG TABLET (FP) PO PRN (14:15)
[2017-08-15] MEDS: THIAMINE HCL 100 MG TABLET (FP) PO SCH (21:47)
[2017-08-16] MEDS: hydrOXYzine PAMOATE 50 MG CAPSULE (FP) PO PRN ×4 (03:36→22:03)
[2017-08-16] MEDS: METHOCARBAMOL 500 MG TABLET PO SCH ×3 (06:37→22:04)
[2017-08-16] MEDS: QUEtiapine FUMARATE 25 MG TABLET (FP) PO SCH ×4 (06:37→14:15)
[2017-08-16] MEDS ORDERED: PT OWN MED DRAWER 7, Y5N ONE (09:14)
--- NOTE | 2017-08-16 10:08 | PN ---
Psychiatric Progress Note Vital Signs: Vital Signs Period Temp Pulse Resp BP Sys/Piedra Pulse Ox Last 24 Hr 98.3 F 79-93 -18 110-114/72-73 Date of Session: 08/16/17 Chief Complaint:: Bonifacio nervious,I had a bad news. HPI: Alcohol dependence ,Ecstasy abuse,Amphetamine abuse comorbid with substance induced mood disorder. ROS: unremarkable Current Medications: Active Medications Generic Name Dose Route Start Last Admin Trade Name Freq PRN Reason Stop Dose Admin Acetaminophen 650 mg 08/03/17 16:03 Tylenol - PO Q4H PRN FEVER Al Hydroxide/Mg Hydroxide 30 ml 08/03/17 16:03 Mylanta Oral Suspension - PO Q6H PRN DYSPEPSIA Clonidine 0.1 mg 08/03/17 19:34 08/15/17 21:47 Catapres - PO 0.1 mg BID PRN Administration WITHDRAWAL(CONT SUBST) Clotrimazole 1 applic 08/12/17 13:30 08/15/17 21:45 Lotrimin 1% Cream - TP 1 applic BID RANDOLPH Administration Colloidal Oatmeal 1 applic 08/13/17 15:39 08/13/17 15:48 Aveeno Soap - TP 1 applic DAILY PRN Administration HYGEINE Diphenhydramine HCl 50 mg 08/05/17 10:14 Benadryl - PO HS PRN INSOMNIA Eucalyptus/Menthol/Phenol/Sorbitol 1 each 08/03/17 16:03 Cepastat Lozenge - MM Q4H PRN SORE THROAT Guaifenesin 10 ml 08/03/17 16:03 Robitussin Dm - PO Q6H PRN COUGH Hydroxyzine Pamoate 50 mg 08/03/17 16:03 08/16/17 07:38 Vistaril - PO 50 mg Q4H PRN Administration AGITATION Ibuprofen 400 mg 08/03/17 16:03 08/15/17 14:15 Motrin - PO 400 mg Q6H PRN Administration Pain Level 4-6 Loperamide HCl 4 mg 08/03/17 16:03 Imodium - PO Q6H PRN DIARRHEA Magnesium Citrate 300 ml 08/03/17 16:03 Citroma - PO Q48H PRN CONSTIPATION Magnesium Hydroxide 30 ml 08/03/17 16:03 Milk Of Magnesia - PO DAILY PRN CONSTIPATION Methocarbamol 500 mg 08/05/17 14:00 08/16/17 06:37 Robaxin - PO 500 mg TID RANDOLPH Administration Nicotine Polacrilex 4 mg 08/03/17 16:03 Nicorette Gum - BUC Q2H PRN NICOTINE REPLACEMENT RX Paroxetine HCl 30 mg 08/04/17 11:30 08/15/17 09:26 Paxil - PO 30 mg DAILY RANDOLPH Administration Multivit/Folic Acid/Iron 1 tab 08/04/17 10:00 08/15/17 09:26 Vitamins (Sjr) - PO 1 tab DAILY RANDOLPH Administration Pseudoephedrine/Triprolidine 1 combo 08/03/17 16:03 Actifed - PO TID PRN NASAL CONGESTION Quetiapine Fumarate 100 mg 08/16/17 22:00 Seroquel - PO HS RANDOLPH Quetiapine Fumarate 25 mg 08/16/17 10:00 Seroquel - PO TID@1000,1200,1400 RANDOLPH Thiamine HCl 100 mg 08/03/17 22:00 08/15/17 21:47 Vitamin B1 - PO 100 mg HS RANDOLPH Administration Current Side Effect: No Lab tests ordered: No Lab tests reviewed: Yes Provider note:: Chart was revuewed,patient was evaluatedShe addressed severe anxiety,sleeping difficulties started since this weekend when she found out bad news that her doesnt her back home.According to her her he was irina, unreasonable ans nasty when taling to her.Patient got very upset,nervious,not able to fall asleep and stay in sleep.properties of Seroquel has been discussed with the patient including side effects,benefits and dose adjustment. Seroquel 25 mg p tid will be adjusted to 25 mg po tid and Seroquel 75 mg po hs will be adjusted to 100 mg po hs. Supportive therapy provided. Total face to face time:: 35 Mental Status Exam - Mental Status Exam Alert and Oriented to: Time, Place, Person Cognitive Function: Grossly Intact Patient Appearance: Well Groomed Mood: Nervous, Anxious Affect: Mood Congruent, Labile Patient Behavior: Talkative, Cooperative Speech Pattern: Clear Voice Loudness: Normal Thought Process: Goal Oriented Thought Disorder: Not Present Hallucinations: Denies Suicidal Ideation: Denies Homicidal Ideation: Denies Insight/Judgement: Fair Sleep: Difficulty falling asleep Appetite: Fair Muscle strength/Tone: Normal Gait/Station: Normal Psychiatric Treatment Plan - Problem List (1) Alcohol dependence Current Visit: Yes (2) Nicotine dependence Current Visit: Yes (3) Ecstasy abuse Current Visit: Yes (4) Amphetamine abuse Current Visit: Yes (5) Drug-induced mood disorder Current Visit: Yes
[2017-08-16] MEDS: PRENATAL VITAMINS W/ FOLIC ACID TABLET (FP) PO SCH (10:44)
[2017-08-16] MEDS: PARoxetine HCL 10 MG TABLET (FP) PO SCH (10:45)
[2017-08-16] MEDS: CLOTRIMAZOLE 1% CREAM 15 GM TUBE TP SCH ×2 (10:45→22:04)
[2017-08-16] MEDS: THIAMINE HCL 100 MG TABLET (FP) PO SCH (22:02)
[2017-08-16] MEDS: QUEtiapine FUMARATE 100 MG TABLET (FP) PO SCH (22:03)
[2017-08-16] MEDS: cloNIDine HCL 0.1 MG TABLET PO PRN (22:03)
[2017-08-17] MEDS: METHOCARBAMOL 500 MG TABLET PO SCH ×3 (06:28→21:55)
[2017-08-17] MEDS: hydrOXYzine PAMOATE 50 MG CAPSULE (FP) PO PRN ×4 (06:28→21:55)
[2017-08-17] MEDS: QUEtiapine FUMARATE 25 MG TABLET (FP) PO SCH ×3 (10:45→15:10)
[2017-08-17] MEDS: PRENATAL VITAMINS W/ FOLIC ACID TABLET (FP) PO SCH (10:45)
[2017-08-17] MEDS: cloNIDine HCL 0.1 MG TABLET PO PRN ×2 (10:46→21:55)
[2017-08-17] MEDS: CLOTRIMAZOLE 1% CREAM 15 GM TUBE TP SCH ×2 (10:46→21:55)
[2017-08-17] MEDS: PARoxetine HCL 10 MG TABLET (FP) PO SCH (10:46)
[2017-08-17] MEDS: THIAMINE HCL 100 MG TABLET (FP) PO SCH (21:54)
[2017-08-17] MEDS: QUEtiapine FUMARATE 100 MG TABLET (FP) PO SCH (21:55)
[2017-08-18] MEDS: hydrOXYzine PAMOATE 50 MG CAPSULE (FP) PO PRN ×3 (06:23→19:17)
[2017-08-18] MEDS: METHOCARBAMOL 500 MG TABLET PO SCH ×3 (06:23→21:45)
--- NOTE | 2017-08-18 09:09 | PN ---
Psychiatric Progress Note Vital Signs: Vital Signs Period Temp Pulse Resp BP Sys/Piedra Pulse Ox Last 24 Hr 98.0 F 79-85 18-18 108-122/72-76 Date of Session: 08/18/17 Current Medications: Active Medications Generic Name Dose Route Start Last Admin Trade Name Freq PRN Reason Stop Dose Admin Acetaminophen 650 mg 08/03/17 16:03 Tylenol - PO Q4H PRN FEVER Al Hydroxide/Mg Hydroxide 30 ml 08/03/17 16:03 Mylanta Oral Suspension - PO Q6H PRN DYSPEPSIA Clonidine 0.1 mg 08/03/17 19:34 08/17/17 21:55 Catapres - PO 0.1 mg BID PRN Administration WITHDRAWAL(CONT SUBST) Clotrimazole 1 applic 08/12/17 13:30 08/17/17 21:55 Lotrimin 1% Cream - TP 1 applic BID RANDOLPH Administration Colloidal Oatmeal 1 applic 08/13/17 15:39 08/13/17 15:48 Aveeno Soap - TP 1 applic DAILY PRN Administration HYGEINE Diphenhydramine HCl 50 mg 08/05/17 10:14 Benadryl - PO HS PRN INSOMNIA Eucalyptus/Menthol/Phenol/Sorbitol 1 each 08/03/17 16:03 Cepastat Lozenge - MM Q4H PRN SORE THROAT Guaifenesin 10 ml 08/03/17 16:03 Robitussin Dm - PO Q6H PRN COUGH Hydroxyzine Pamoate 50 mg 08/03/17 16:03 08/18/17 06:23 Vistaril - PO 50 mg Q4H PRN Administration AGITATION Ibuprofen 400 mg 08/03/17 16:03 08/15/17 14:15 Motrin - PO 400 mg Q6H PRN Administration Pain Level 4-6 Loperamide HCl 4 mg 08/03/17 16:03 Imodium - PO Q6H PRN DIARRHEA Magnesium Citrate 300 ml 08/03/17 16:03 Citroma - PO Q48H PRN CONSTIPATION Magnesium Hydroxide 30 ml 08/03/17 16:03 Milk Of Magnesia - PO DAILY PRN CONSTIPATION Methocarbamol 500 mg 08/05/17 14:00 08/18/17 06:23 Robaxin - PO 500 mg TID RANDOLPH Administration Nicotine Polacrilex 4 mg 08/03/17 16:03 Nicorette Gum - BUC Q2H PRN NICOTINE REPLACEMENT RX Paroxetine HCl 30 mg 08/04/17 11:30 08/17/17 10:46 Paxil - PO 30 mg DAILY RANDOLPH Administration Multivit/Folic Acid/Iron 1 tab 08/04/17 10:00 08/17/17 10:45 Vitamins (Sjr) - PO 1 tab DAILY RANDOLPH Administration Pseudoephedrine/Triprolidine 1 combo 08/03/17 16:03 Actifed - PO TID PRN NASAL CONGESTION Quetiapine Fumarate 100 mg 08/16/17 22:00 08/17/17 21:55 Seroquel - PO 100 mg HS RANDOLPH Administration Quetiapine Fumarate 25 mg 08/16/17 10:00 08/17/17 15:10 Seroquel - PO 25 mg TID@1000,1200,1400 RANDOLPH Administration Thiamine HCl 100 mg 08/03/17 22:00 08/17/17 21:54 Vitamin B1 - PO 100 mg HS RANDOLPH Administration Current Side Effect: No Lab tests ordered: No Lab tests reviewed: Yes Psychiatric Treatment Plan - Problem List (1) Alcohol dependence Current Visit: Yes (2) Nicotine dependence Current Visit: Yes (3) Ecstasy abuse Current Visit: Yes (4) Amphetamine abuse Current Visit: Yes (5) Drug-induced mood disorder Current Visit: Yes
[2017-08-18] MEDS: PRENATAL VITAMINS W/ FOLIC ACID TABLET (FP) PO SCH (09:28)
[2017-08-18] MEDS: CLOTRIMAZOLE 1% CREAM 15 GM TUBE TP SCH ×2 (09:28→21:46)
[2017-08-18] MEDS: PARoxetine HCL 10 MG TABLET (FP) PO SCH (09:28)
[2017-08-18] MEDS: QUEtiapine FUMARATE 25 MG TABLET (FP) PO SCH ×3 (09:29→14:02)
[2017-08-18] MEDS: cloNIDine HCL 0.1 MG TABLET PO PRN ×2 (09:30→21:45)
[2017-08-18] MEDS ORDERED: PT OWN MED DRAWER 7, Y5N ONE (10:43)
[2017-08-18] MEDS: QUEtiapine FUMARATE 100 MG TABLET (FP) PO SCH (21:45)
[2017-08-18] MEDS: THIAMINE HCL 100 MG TABLET (FP) PO SCH (21:45)
[2017-08-19] MEDS: QUEtiapine FUMARATE 25 MG TABLET (FP) PO SCH (06:35)
[2017-08-19] MEDS: METHOCARBAMOL 500 MG TABLET PO SCH ×3 (06:35→21:39)
[2017-08-19] MEDS: hydrOXYzine PAMOATE 50 MG CAPSULE (FP) PO PRN ×4 (08:13→21:39)
[2017-08-19] MEDS: PRENATAL VITAMINS W/ FOLIC ACID TABLET (FP) PO SCH (10:34)
[2017-08-19] MEDS: CLOTRIMAZOLE 1% CREAM 15 GM TUBE TP SCH ×2 (10:34→21:40)
[2017-08-19] MEDS: PARoxetine HCL 10 MG TABLET (FP) PO SCH (10:34)
[2017-08-19] MEDS: cloNIDine HCL 0.1 MG TABLET PO PRN (17:06)
[2017-08-19] MEDS: THIAMINE HCL 100 MG TABLET (FP) PO SCH (21:39)
[2017-08-19] MEDS: QUEtiapine FUMARATE 100 MG TABLET (FP) PO SCH (21:39)
[2017-08-20] MEDS: cloNIDine HCL 0.1 MG TABLET PO PRN ×2 (06:18→18:02)
[2017-08-20] MEDS: METHOCARBAMOL 500 MG TABLET PO SCH ×3 (06:18→21:50)
[2017-08-20] MEDS: QUEtiapine FUMARATE 25 MG TABLET (FP) PO SCH (06:19)
[2017-08-20] MEDS: hydrOXYzine PAMOATE 50 MG CAPSULE (FP) PO PRN ×4 (08:31→21:51)
[2017-08-20] MEDS ORDERED: PT OWN MED DRAWER 7, Y5N ONE ×4 (08:36→19:47)
[2017-08-20] MEDS: PRENATAL VITAMINS W/ FOLIC ACID TABLET (FP) PO SCH (10:37)
[2017-08-20] MEDS: CLOTRIMAZOLE 1% CREAM 15 GM TUBE TP SCH ×2 (10:37→21:52)
[2017-08-20] MEDS: PARoxetine HCL 10 MG TABLET (FP) PO SCH (10:37)
--- NOTE | 2017-08-20 17:27 | PN ---
[facility] Progress Note (SOAP) Subjective: difficulty moving bowels and straining, anxious and tremors Objective: 08/20/17 17:22 Vital Signs Temperature 98.2 F 08/20/17 07:26 Pulse Rate 83 08/20/17 07:26 Respiratory Rate 17 18 07:26 Blood Pressure 120/80 08/20/17 07:26 O2 Sat by Pulse Oximetry (%) GENERAL APPEARANCE: Well developed, well nourished, alert and cooperative, and appears to be in no acute distress, anxious. CARDIAC: Normal S1 and S2. No S3, S4 or murmurs. Rhythm is regular. There is no peripheral edema, cyanosis or pallor. Extremities are warm and well perfused. Capillary refill is less than 2 seconds. No carotid bruits. LUNGS: Clear to auscultation and percussion without rales, rhonchi, wheezing or diminished breath sounds. ABDOMEN: Positive bowel sounds. Soft, nondistended, nontender. No guarding or rebound. No masses. NEUROLOGICAL: CN II-XII intact. Strength and sensation symmetric and intact throughout. SKIN: Skin normal color, texture and turgor with no lesions or eruptions. PSYCHIATRIC: Ao x 3, anxious and shaky 08/20/17 17:26 Assessment: 08/20/17 17:23 anxious ( consulted with Dr Ziegler regarding patients symptoms, start neurontin TID and continue to monitor, patient should follow up with psych for medication adjustment for anxiety) constipation 08/20/17 17:25 Plan: Increase fluids Neurotin 100mg TID Colace 300mg QHS Follow up with psych for medication adjustment continue to monitor / follow up as needed
[2017-08-20] MEDS: DOCUSATE SODIUM 100 MG CAPSULE (FP) PO SCH (21:50)
[2017-08-20] MEDS: QUEtiapine FUMARATE 100 MG TABLET (FP) PO SCH (21:50)
[2017-08-20] MEDS: GABAPENTIN 100 MG CAPSULE (FP) PO SCH (21:50)
[2017-08-20] MEDS: THIAMINE HCL 100 MG TABLET (FP) PO SCH (21:50)
[2017-08-21] MEDS: METHOCARBAMOL 500 MG TABLET PO SCH ×3 (06:11→21:42)
[2017-08-21] MEDS: GABAPENTIN 100 MG CAPSULE (FP) PO SCH ×3 (06:12→21:42)
[2017-08-21] MEDS: QUEtiapine FUMARATE 25 MG TABLET (FP) PO SCH (06:12)
[2017-08-21] MEDS: cloNIDine HCL 0.1 MG TABLET PO PRN ×2 (06:13→18:55)
[2017-08-21] MEDS ORDERED: COLLOIDAL OATMEAL 1 BAR EACH TP PRN (08:00)
[2017-08-21] MEDS: PRENATAL VITAMINS W/ FOLIC ACID TABLET (FP) PO SCH (10:32)
[2017-08-21] MEDS: PARoxetine HCL 10 MG TABLET (FP) PO SCH (10:32)
[2017-08-21] MEDS: hydrOXYzine PAMOATE 50 MG CAPSULE (FP) PO PRN ×3 (10:32→18:54)
[2017-08-21] MEDS: CLOTRIMAZOLE 1% CREAM 15 GM TUBE TP SCH ×2 (10:33→21:57)
[2017-08-21] MEDS: COLLOIDAL OATMEAL 1 BAR EACH TP PRN (10:41)
[2017-08-21] MEDS ORDERED: PT OWN MED DRAWER 7, Y5N ONE (10:43)
[2017-08-21] MEDS: QUEtiapine FUMARATE 100 MG TABLET (FP) PO SCH (21:42)
[2017-08-21] MEDS: DOCUSATE SODIUM 100 MG CAPSULE (FP) PO SCH (21:42)
[2017-08-21] MEDS: THIAMINE HCL 100 MG TABLET (FP) PO SCH (21:42)
[2017-08-22] MEDS: hydrOXYzine PAMOATE 50 MG CAPSULE (FP) PO PRN ×4 (06:23→19:09)
[2017-08-22] MEDS: QUEtiapine FUMARATE 25 MG TABLET (FP) PO SCH (06:23)
[2017-08-22] MEDS: METHOCARBAMOL 500 MG TABLET PO SCH ×3 (06:23→21:56)
[2017-08-22] MEDS: GABAPENTIN 100 MG CAPSULE (FP) PO SCH ×3 (06:23→21:56)
[2017-08-22] MEDS: cloNIDine HCL 0.1 MG TABLET PO PRN ×2 (06:23→18:03)
[2017-08-22] MEDS: PARoxetine HCL 10 MG TABLET (FP) PO SCH (10:43)
[2017-08-22] MEDS: PRENATAL VITAMINS W/ FOLIC ACID TABLET (FP) PO SCH (10:43)
[2017-08-22] MEDS: CLOTRIMAZOLE 1% CREAM 15 GM TUBE TP SCH ×2 (10:44→21:57)
[2017-08-22] MEDS: DOCUSATE SODIUM 100 MG CAPSULE (FP) PO SCH (21:55)
[2017-08-22] MEDS: THIAMINE HCL 100 MG TABLET (FP) PO SCH (21:55)
[2017-08-22] MEDS: QUEtiapine FUMARATE 100 MG TABLET (FP) PO SCH (21:56)
[2017-08-23] MEDS: METHOCARBAMOL 500 MG TABLET PO SCH ×3 (06:18→21:45)
[2017-08-23] MEDS: GABAPENTIN 100 MG CAPSULE (FP) PO SCH ×3 (06:18→21:45)
[2017-08-23] MEDS: QUEtiapine FUMARATE 25 MG TABLET (FP) PO SCH (06:19)
[2017-08-23] MEDS: PARoxetine HCL 10 MG TABLET (FP) PO SCH (10:28)
[2017-08-23] MEDS: PRENATAL VITAMINS W/ FOLIC ACID TABLET (FP) PO SCH (10:28)
[2017-08-23] MEDS: CLOTRIMAZOLE 1% CREAM 15 GM TUBE TP SCH ×2 (10:29→21:46)
[2017-08-23] MEDS: cloNIDine HCL 0.1 MG TABLET PO PRN (10:30)
[2017-08-23] MEDS: hydrOXYzine PAMOATE 50 MG CAPSULE (FP) PO PRN ×2 (14:16→18:28)
--- NOTE | 2017-08-23 17:15 | PN ---
Psychiatric Progress Note Vital Signs: Vital Signs Period Temp Pulse Resp BP Sys/Piedra Pulse Ox Last 24 Hr 98.2 F 80-83 18-18 110-127/71-77 Date of Session: 08/23/17 Chief Complaint:: Bonifacio still depressed,anxious." HPI: Patient addressed Alcohol dependence,Amphetamine and Ecstasy abuse comorbid with Substance induced mood disorder. ROS: unremarkable Current Medications: Active Medications Generic Name Dose Route Start Last Admin Trade Name Freq PRN Reason Stop Dose Admin Acetaminophen 650 mg 08/03/17 16:03 Tylenol - PO Q4H PRN FEVER Al Hydroxide/Mg Hydroxide 30 ml 08/03/17 16:03 Mylanta Oral Suspension - PO Q6H PRN DYSPEPSIA Clonidine 0.1 mg 08/03/17 19:34 08/23/17 10:30 Catapres - PO 0.1 mg BID PRN Administration WITHDRAWAL(CONT SUBST) Clotrimazole 1 applic 08/12/17 13:30 08/23/17 10:29 Lotrimin 1% Cream - TP 1 applic BID RANDOLPH Administration Colloidal Oatmeal 1 applic 08/13/17 15:39 08/21/17 10:41 Aveeno Soap - TP 1 applic DAILY PRN Administration HYGEINE Diphenhydramine HCl 50 mg 08/05/17 10:14 Benadryl - PO HS PRN INSOMNIA Docusate Sodium 300 mg 08/20/17 22:00 08/22/17 21:55 Colace - PO 300 mg HS RANDOLPH Administration Eucalyptus/Menthol/Phenol/Sorbitol 1 each 08/03/17 16:03 Cepastat Lozenge - MM Q4H PRN SORE THROAT Gabapentin 100 mg 08/20/17 22:00 08/23/17 13:01 Neurontin - PO 100 mg TID RANDOLPH Administration Guaifenesin 10 ml 08/03/17 16:03 Robitussin Dm - PO Q6H PRN COUGH Hydroxyzine Pamoate 50 mg 08/03/17 16:03 08/23/17 14:16 Vistaril - PO 50 mg Q4H PRN Administration AGITATION Ibuprofen 400 mg 08/03/17 16:03 08/15/17 14:15 Motrin - PO 400 mg Q6H PRN Administration Pain Level 4-6 Loperamide HCl 4 mg 08/03/17 16:03 Imodium - PO Q6H PRN DIARRHEA Magnesium Citrate 300 ml 08/03/17 16:03 Citroma - PO Q48H PRN CONSTIPATION Magnesium Hydroxide 30 ml 08/03/17 16:03 Milk Of Magnesia - PO DAILY PRN CONSTIPATION Methocarbamol 500 mg 08/05/17 14:00 08/23/17 13:01 Robaxin - PO 500 mg TID RANDOLPH Administration Nicotine Polacrilex 4 mg 08/03/17 16:03 Nicorette Gum - BUC Q2H PRN NICOTINE REPLACEMENT RX Paroxetine HCl 40 mg 08/24/17 10:00 Paxil - PO DAILY RANDOLPH Multivit/Folic Acid/Iron 1 tab 08/04/17 10:00 08/23/17 10:28 Vitamins (Sjr) - PO 1 tab DAILY RANDOLPH Administration Pseudoephedrine/Triprolidine 1 combo 08/03/17 16:03 Actifed - PO TID PRN NASAL CONGESTION Quetiapine Fumarate 100 mg 08/16/17 22:00 08/22/17 21:56 Seroquel - PO 100 mg HS RANDOLPH Administration Quetiapine Fumarate 75 mg 08/19/17 07:00 08/23/17 06:19 Seroquel - PO 75 mg AM RANDOLPH Administration Thiamine HCl 100 mg 08/03/17 22:00 08/22/17 21:55 Vitamin B1 - PO 100 mg HS RANDOLPH Administration Current Side Effect: No Lab tests ordered: No Lab tests reviewed: Yes Provider note:: Chart was revuewed,met with the patient.She addressed depression,anxiety,mood instability.Properties of Paxil has been discussed with patient including side effects,benefits and dose adjustment.Paxil 30 mg po daily will be adjusted to 40 mg po daily. Patient will continue current medications as per plan. Supportive therapy provided. Total face to face time:: 30 Mental Status Exam - Mental Status Exam Alert and Oriented to: Time, Place, Person Cognitive Function: Grossly Intact Patient Appearance: Well Groomed Mood: Anxious, Expansive Affect: Labile Patient Behavior: Cooperative Speech Pattern: Clear Voice Loudness: Normal Thought Process: Goal Oriented Thought Disorder: Not Present Hallucinations: Denies Suicidal Ideation: Denies Homicidal Ideation: Denies Insight/Judgement: Fair Sleep: Fair Appetite: Good Muscle strength/Tone: Normal Gait/Station: Normal Psychiatric Treatment Plan - Problem List (1) Alcohol dependence Current Visit: Yes (2) Nicotine dependence Current Visit: Yes (3) Ecstasy abuse Current Visit: Yes (4) Amphetamine abuse Current Visit: Yes (5) Drug-induced mood disorder Current Visit: Yes
[2017-08-23] MEDS: DOCUSATE SODIUM 100 MG CAPSULE (FP) PO SCH (21:45)
[2017-08-23] MEDS: QUEtiapine FUMARATE 100 MG TABLET (FP) PO SCH (21:45)
[2017-08-23] MEDS: THIAMINE HCL 100 MG TABLET (FP) PO SCH (21:45)
[2017-08-24] MEDS: hydrOXYzine PAMOATE 50 MG CAPSULE (FP) PO PRN ×4 (05:25→21:27)
[2017-08-24] MEDS: QUEtiapine FUMARATE 25 MG TABLET (FP) PO SCH (06:15)
[2017-08-24] MEDS: METHOCARBAMOL 500 MG TABLET PO SCH ×3 (06:16→21:27)
[2017-08-24] MEDS: GABAPENTIN 100 MG CAPSULE (FP) PO SCH ×3 (06:16→21:27)
[2017-08-24] MEDS: PRENATAL VITAMINS W/ FOLIC ACID TABLET (FP) PO SCH (10:09)
[2017-08-24] MEDS: CLOTRIMAZOLE 1% CREAM 15 GM TUBE TP SCH ×2 (10:09→21:27)
[2017-08-24] MEDS: PARoxetine HCL 20 MG TABLET (FP) PO SCH (10:09)
[2017-08-24] MEDS: cloNIDine HCL 0.1 MG TABLET PO PRN ×2 (10:10→21:41)
[2017-08-24] MEDS ORDERED: PT OWN MED DRAWER 7, Y5N ONE ×4 (10:34→16:13)
[2017-08-24] MEDS: THIAMINE HCL 100 MG TABLET (FP) PO SCH (21:26)
[2017-08-24] MEDS: DOCUSATE SODIUM 100 MG CAPSULE (FP) PO SCH (21:27)
[2017-08-24] MEDS: QUEtiapine FUMARATE 100 MG TABLET (FP) PO SCH (21:27)
[2017-08-25] MEDS: GABAPENTIN 100 MG CAPSULE (FP) PO SCH ×3 (06:34→21:41)
[2017-08-25] MEDS: METHOCARBAMOL 500 MG TABLET PO SCH ×3 (06:34→21:41)
[2017-08-25] MEDS: QUEtiapine FUMARATE 25 MG TABLET (FP) PO SCH (06:34)
[2017-08-25] MEDS: hydrOXYzine PAMOATE 50 MG CAPSULE (FP) PO PRN ×3 (08:56→18:22)
[2017-08-25] MEDS: PRENATAL VITAMINS W/ FOLIC ACID TABLET (FP) PO SCH (10:34)
[2017-08-25] MEDS: PARoxetine HCL 20 MG TABLET (FP) PO SCH (10:34)
[2017-08-25] MEDS: CLOTRIMAZOLE 1% CREAM 15 GM TUBE TP SCH ×2 (10:34→21:39)
[2017-08-25] MEDS: cloNIDine HCL 0.1 MG TABLET PO PRN (18:22)
[2017-08-25] MEDS: THIAMINE HCL 100 MG TABLET (FP) PO SCH (21:41)
[2017-08-25] MEDS: QUEtiapine FUMARATE 100 MG TABLET (FP) PO SCH (21:41)
[2017-08-25] MEDS: DOCUSATE SODIUM 100 MG CAPSULE (FP) PO SCH (21:41)
[2017-08-26] MEDS: cloNIDine HCL 0.1 MG TABLET PO PRN ×2 (06:44→18:27)
[2017-08-26] MEDS: METHOCARBAMOL 500 MG TABLET PO SCH ×3 (06:44→21:46)
[2017-08-26] MEDS: GABAPENTIN 100 MG CAPSULE (FP) PO SCH ×3 (06:44→21:46)
[2017-08-26] MEDS: QUEtiapine FUMARATE 25 MG TABLET (FP) PO SCH (06:45)
[2017-08-26] MEDS: PRENATAL VITAMINS W/ FOLIC ACID TABLET (FP) PO SCH (10:20)
[2017-08-26] MEDS: hydrOXYzine PAMOATE 50 MG CAPSULE (FP) PO PRN ×3 (10:20→21:47)
[2017-08-26] MEDS: PARoxetine HCL 20 MG TABLET (FP) PO SCH (10:20)
[2017-08-26] MEDS: CLOTRIMAZOLE 1% CREAM 15 GM TUBE TP SCH ×2 (10:21→21:48)
[2017-08-26] MEDS: QUEtiapine FUMARATE 100 MG TABLET (FP) PO SCH (21:46)
[2017-08-26] MEDS: DOCUSATE SODIUM 100 MG CAPSULE (FP) PO SCH (21:46)
[2017-08-26] MEDS: THIAMINE HCL 100 MG TABLET (FP) PO SCH (21:46)
[2017-08-27] MEDS: GABAPENTIN 100 MG CAPSULE (FP) PO SCH ×3 (06:38→21:53)
[2017-08-27] MEDS: METHOCARBAMOL 500 MG TABLET PO SCH ×3 (06:38→21:53)
[2017-08-27] MEDS: cloNIDine HCL 0.1 MG TABLET PO PRN ×2 (06:38→18:56)
[2017-08-27] MEDS: hydrOXYzine PAMOATE 50 MG CAPSULE (FP) PO PRN ×3 (06:38→18:56)
[2017-08-27] MEDS: QUEtiapine FUMARATE 25 MG TABLET (FP) PO SCH (06:39)
[2017-08-27] MEDS: PRENATAL VITAMINS W/ FOLIC ACID TABLET (FP) PO SCH (10:56)
[2017-08-27] MEDS: PARoxetine HCL 20 MG TABLET (FP) PO SCH (10:56)
[2017-08-27] MEDS: CLOTRIMAZOLE 1% CREAM 15 GM TUBE TP SCH ×2 (10:57→21:52)
[2017-08-27] MEDS: THIAMINE HCL 100 MG TABLET (FP) PO SCH (21:53)
[2017-08-27] MEDS: DOCUSATE SODIUM 100 MG CAPSULE (FP) PO SCH (21:53)
[2017-08-27] MEDS: QUEtiapine FUMARATE 100 MG TABLET (FP) PO SCH (21:53)
[2017-08-27] MEDS ORDERED: PT OWN MED DRAWER 7, Y5N ONE (21:55)
[2017-08-28] MEDS: METHOCARBAMOL 500 MG TABLET PO SCH ×3 (06:18→21:44)
[2017-08-28] MEDS: QUEtiapine FUMARATE 25 MG TABLET (FP) PO SCH (06:18)
[2017-08-28] MEDS: GABAPENTIN 100 MG CAPSULE (FP) PO SCH ×3 (06:18→21:44)
[2017-08-28] MEDS: IBUPROFEN 400 MG TABLET (FP) PO PRN ×2 (06:19→21:44)
[2017-08-28] MEDS: PARoxetine HCL 20 MG TABLET (FP) PO SCH (09:07)
[2017-08-28] MEDS: PRENATAL VITAMINS W/ FOLIC ACID TABLET (FP) PO SCH (09:07)
[2017-08-28] MEDS: cloNIDine HCL 0.1 MG TABLET PO PRN (09:07)
[2017-08-28] MEDS: CLOTRIMAZOLE 1% CREAM 15 GM TUBE TP SCH ×2 (10:36→21:45)
[2017-08-28] MEDS: hydrOXYzine PAMOATE 50 MG CAPSULE (FP) PO PRN ×2 (12:43→21:43)
[2017-08-28] MEDS: DOCUSATE SODIUM 100 MG CAPSULE (FP) PO SCH (21:43)
[2017-08-28] MEDS: QUEtiapine FUMARATE 100 MG TABLET (FP) PO SCH (21:43)
[2017-08-28] MEDS: THIAMINE HCL 100 MG TABLET (FP) PO SCH (21:44)
[2017-08-29] MEDS: hydrOXYzine PAMOATE 50 MG CAPSULE (FP) PO PRN ×4 (02:39→19:24)
[2017-08-29] MEDS: METHOCARBAMOL 500 MG TABLET PO SCH ×3 (06:28→21:16)
[2017-08-29] MEDS: GABAPENTIN 100 MG CAPSULE (FP) PO SCH ×3 (06:28→21:16)
[2017-08-29] MEDS: QUEtiapine FUMARATE 25 MG TABLET (FP) PO SCH (06:28)
[2017-08-29] MEDS: IBUPROFEN 400 MG TABLET (FP) PO PRN ×2 (07:16→19:06)
[2017-08-29] MEDS: PARoxetine HCL 20 MG TABLET (FP) PO SCH (09:58)
[2017-08-29] MEDS: PRENATAL VITAMINS W/ FOLIC ACID TABLET (FP) PO SCH (09:58)
[2017-08-29] MEDS: CLOTRIMAZOLE 1% CREAM 15 GM TUBE TP SCH ×2 (09:59→21:16)
[2017-08-29] MEDS: cloNIDine HCL 0.1 MG TABLET PO PRN (12:30)
[2017-08-29] MEDS ORDERED: PT OWN MED DRAWER 7, Y5N ONE (14:30)
[2017-08-29] MEDS: THIAMINE HCL 100 MG TABLET (FP) PO SCH (21:16)
[2017-08-29] MEDS: QUEtiapine FUMARATE 100 MG TABLET (FP) PO SCH (21:16)
[2017-08-29] MEDS: DOCUSATE SODIUM 100 MG CAPSULE (FP) PO SCH (21:16)
[2017-08-30] MEDS: GABAPENTIN 100 MG CAPSULE (FP) PO SCH ×3 (06:20→22:00)
[2017-08-30] MEDS: METHOCARBAMOL 500 MG TABLET PO SCH ×3 (06:20→22:00)
[2017-08-30] MEDS: IBUPROFEN 400 MG TABLET (FP) PO PRN (06:21)
[2017-08-30] MEDS: QUEtiapine FUMARATE 25 MG TABLET (FP) PO SCH (06:21)
[2017-08-30] MEDS: PARoxetine HCL 20 MG TABLET (FP) PO SCH (10:41)
[2017-08-30] MEDS: PRENATAL VITAMINS W/ FOLIC ACID TABLET (FP) PO SCH (10:41)
[2017-08-30] MEDS: CLOTRIMAZOLE 1% CREAM 15 GM TUBE TP SCH ×2 (10:43→22:01)
[2017-08-30] MEDS: hydrOXYzine PAMOATE 50 MG CAPSULE (FP) PO PRN ×3 (10:43→23:19)
[2017-08-30] MEDS ORDERED: LACTULOSE 20 GM/30 ML UDC (FOR ORAL USE ONLY) PO PRN (12:44)
--- NOTE | 2017-08-30 12:55 | PN ---
[facility] Progress Note Note: Patient reports no BM x 3 days, denies abdominal pain. C/O of headache since yesterday that comes an goes. ROS: Chest: no cough/sputum/SOB/chest pain. CVS: no CP/heaviness/jaw or arm pain/palpitations/leg pain with exercise/edema. GI: no diarrhea/blood in stool/melena., + constipation x 3 days Neuro: + headache x 1 day. Skin: no rashes or eruptions Musculoskeletal: + back pain , non numbness or tingling Assessment: GENERAL APPEARANCE: Well developed, well nourished, alert and cooperative, and appears to be in no acute distress, anxious. CARDIAC: Normal S1 and S2. No S3, S4 or murmurs. Rhythm is regular. There is no peripheral edema, cyanosis or pallor. Extremities are warm and well perfused. Capillary refill is less than 2 seconds. No carotid bruits. LUNGS: Clear to auscultation and percussion without rales, rhonchi, wheezing or diminished breath sounds. ABDOMEN: Positive bowel sounds. Soft, nondistended, mild nontender LLB. No guarding or rebound. No masses. Musciloskeletal : + back pain , Full ROM NEUROLOGICAL: CN II-XII intact. Strength and sensation symmetric and intact throughout. SKIN: Skin normal color, texture and turgor with no lesions or eruptions. Plan: Increase fluids and ambulation Headache : Ibuprofen 600mg q8h Back pain : Lidocaine patch PRN Constipation: Lactulose and senna Continue to monitor , follow up as need
[2017-08-30] MEDS: LIDOCAINE 5% TOPICAL PATCH TP ONE ×2 (15:59→16:00)
[2017-08-30] MEDS: cloNIDine HCL 0.1 MG TABLET PO PRN (16:02)
--- NOTE | 2017-08-30 17:17 | PN ---
Psychiatric Progress Note Vital Signs: Vital Signs Period Temp Pulse Resp BP Sys/Piedra Pulse Ox Last 24 Hr 98.2 F 83-89 18-18 109-114/67-70 Date of Session: 08/30/17 Chief Complaint:: Discharge visit HPI: Alcohol dependence,Amphetamine abuse,Ecstasy abuse. Current Medications: Active Medications Generic Name Dose Route Start Last Admin Trade Name Freq PRN Reason Stop Dose Admin Acetaminophen 650 mg 08/03/17 16:03 Tylenol - PO Q4H PRN FEVER Al Hydroxide/Mg Hydroxide 30 ml 08/03/17 16:03 Mylanta Oral Suspension - PO Q6H PRN DYSPEPSIA Clonidine 0.1 mg 08/03/17 19:34 08/30/17 16:02 Catapres - PO 0.1 mg BID PRN Administration WITHDRAWAL(CONT SUBST) Clotrimazole 1 applic 08/12/17 13:30 08/30/17 10:43 Lotrimin 1% Cream - TP 1 applic BID RANDOLPH Administration Colloidal Oatmeal 1 applic 08/13/17 15:39 08/21/17 10:41 Aveeno Soap - TP 1 applic DAILY PRN Administration HYGEINE Diphenhydramine HCl 50 mg 08/05/17 10:14 Benadryl - PO HS PRN INSOMNIA Docusate Sodium 300 mg 08/20/17 22:00 08/29/17 21:16 Colace - PO 300 mg HS RANDOLPH Administration Eucalyptus/Menthol/Phenol/Sorbitol 1 each 08/03/17 16:03 08/29/17 06:31 Cepastat Lozenge - MM 1 each Q4H PRN Administration SORE THROAT Gabapentin 100 mg 08/20/17 22:00 08/30/17 13:38 Neurontin - PO 100 mg TID RANDOLPH Administration Guaifenesin 10 ml 08/03/17 16:03 Robitussin Dm - PO Q6H PRN COUGH Hydroxyzine Pamoate 50 mg 08/03/17 16:03 08/30/17 10:43 Vistaril - PO 50 mg Q4H PRN Administration AGITATION Ibuprofen 600 mg 08/30/17 12:47 Motrin - PO Q6H PRN Pain Level 4-6 Lactulose 20 gm 08/30/17 12:44 Cephulac (Oral Use) PO TID PRN CONSTIPATION Loperamide HCl 4 mg 08/03/17 16:03 Imodium - PO Q6H PRN DIARRHEA Magnesium Citrate 300 ml 08/03/17 16:03 08/29/17 19:23 Citroma - PO 300 ml Q48H PRN Administration CONSTIPATION Magnesium Hydroxide 30 ml 08/03/17 16:03 08/29/17 10:01 Milk Of Magnesia - PO 30 ml DAILY PRN Administration CONSTIPATION Methocarbamol 500 mg 08/05/17 14:00 08/30/17 13:38 Robaxin - PO 500 mg TID RANDOLPH Administration Miscellaneous 1 each 08/30/17 22:00 Lidoderm Patch Removal MC DAILY@2200 [facility] Nicotine Polacrilex 4 mg 08/03/17 16:03 Nicorette Gum - BUC Q2H PRN NICOTINE REPLACEMENT RX Paroxetine HCl 40 mg 08/24/17 10:00 08/30/17 10:41 Paxil - PO 40 mg DAILY RANDOLPH Administration Multivit/Folic Acid/Iron 1 tab 08/04/17 10:00 08/30/17 10:41 Vitamins (Sjr) - PO 1 tab DAILY RANDOLPH Administration Pseudoephedrine/Triprolidine 1 combo 08/03/17 16:03 Actifed - PO TID PRN NASAL CONGESTION Quetiapine Fumarate 100 mg 08/16/17 22:00 08/29/17 21:16 Seroquel - PO 100 mg HS RANDOLPH Administration Quetiapine Fumarate 75 mg 08/19/17 07:00 08/30/17 06:21 Seroquel - PO 75 mg AM RANDOLPH Administration Senna 1 tab 08/30/17 22:00 Senna - PO HS RANDOLPH Thiamine HCl 100 mg 08/03/17 22:00 08/29/17 21:16 Vitamin B1 - PO 100 mg HS RANDOLPH Administration Current Side Effect: No Lab tests ordered: No Lab tests reviewed: Yes Provider note:: [facility] Seroquel 75 mg po am and 100 mg po hs,Paxil 40 mg po daily and Neurontin 100 mg po tid. Total face to face time:: 30 Mental Status Exam - Mental Status Exam Alert and Oriented to: Time, Place, Person Cognitive Function: Grossly Intact Mood: Euthymic Affect: Mood Congruent Patient Behavior: Cooperative Speech Pattern: Clear Voice Loudness: Normal Thought Process: Goal Oriented Thought Disorder: Not Present Hallucinations: Denies Suicidal Ideation: Denies Homicidal Ideation: Denies Insight/Judgement: Fair Sleep: Fair Appetite: Good Muscle strength/Tone: Normal Gait/Station: Normal Psychiatric Treatment Plan - Problem List (1) Alcohol dependence Current Visit: Yes Qualifiers: Substance use status: uncomplicated Qualified Code(s): F10.20 - Alcohol dependence, uncomplicated (2) Nicotine dependence Current Visit: Yes (3) Ecstasy abuse Current Visit: Yes (4) Amphetamine abuse Current Visit: Yes (5) Drug-induced mood disorder Current Visit: Yes
[2017-08-30] MEDS: IBUPROFEN 600 MG TABLET (FP) PO PRN (17:57)
[2017-08-30] MEDS ORDERED: HYDROCORTISONE 2.5% TOPICAL CREAM 30 GM TUBE PR ONE (18:45)
[2017-08-30] MEDS ORDERED: SODIUM PHOSPHATE/NA BIPHOS 133 ML ENEMA PR ONE (19:00)
[2017-08-30] MEDS: DOCUSATE SODIUM 100 MG CAPSULE (FP) PO SCH (22:00)
[2017-08-30] MEDS ORDERED: LIDOCAINE PATCH REMOVAL MC SCH (22:00)
[2017-08-30] MEDS ORDERED: SENNOSIDES 8.6MG TABLET (FP) PO SCH (22:00)
[2017-08-30] MEDS: THIAMINE HCL 100 MG TABLET (FP) PO SCH (22:00)
[2017-08-30] MEDS: QUEtiapine FUMARATE 100 MG TABLET (FP) PO SCH (22:00)
[2017-08-31] MEDS: IBUPROFEN 600 MG TABLET (FP) PO PRN (01:08)
[2017-08-31] MEDS: hydrOXYzine PAMOATE 50 MG CAPSULE (FP) PO PRN ×2 (03:37→09:08)
[2017-08-31] MEDS: METHOCARBAMOL 500 MG TABLET PO SCH (06:11)
[2017-08-31] MEDS: QUEtiapine FUMARATE 25 MG TABLET (FP) PO SCH (06:11)
[2017-08-31] MEDS: GABAPENTIN 100 MG CAPSULE (FP) PO SCH (06:11)
[2017-08-31] MEDS: cloNIDine HCL 0.1 MG TABLET PO PRN (06:13)
[2017-08-31 07:31] VITALS: BP 117/76; PULSE 92; TEMP 97.7
[2017-08-31] MEDS: PRENATAL VITAMINS W/ FOLIC ACID TABLET (FP) PO SCH (09:07)
[2017-08-31] MEDS: PARoxetine HCL 20 MG TABLET (FP) PO SCH (09:07)
[2017-08-31] MEDS: CLOTRIMAZOLE 1% CREAM 15 GM TUBE TP SCH (09:07)
== END 2017-08-31 09:59 | disposition home or self-care (01) | DRG 772 ==
LOC: YASAS 14:00 → Y3E 14:01
PROVIDERS: ADMIT Psychiatry & Neurology Psychiatry; ATTEND Psychiatry & Neurology Psychiatry
PROC: HZ42ZZZ Group Counseling for Substance Abuse Treatment, Cognitive-Behavioral (ICD-10-PCS; principal; 2017-08-03)
DX: F10.20 Alcohol dependence, uncomplicated (principal); F15.10 Other stimulant abuse, uncomplicated; F16.10 Hallucinogen abuse, uncomplicated; F17.210 Nicotine dependence, cigarettes, uncomplicated; F19.24 Other psychoactive substance dependence with psychoactive substance-induced mood disorder; F41.9 Anxiety disorder, unspecified; K59.00 Constipation, unspecified; M54.5 Low back pain; R51 Headache
CPT/HCPCS: J0735